=== PATIENT | male | born 1945 | race Caucasian/White ===

== ENCOUNTER 2018-03-13 06:20 | Day surgery (SDC) | payer MEDICARE ==
[~2018-03-13] VITALS: Ht 188 cm; Wt 97.5 kg
[~2018-03-13 06:20] MED LIST: AFLURIA IM; ALLOPURINOL300 MG PO; AMLODIPINE BESYL5 MG PO; ASPIR-LOW81 MG PO; CALCIUM600 MG; CALCIUM600 MG PO; FISH OIL 1,0001 EAC2 NG; FLUARIX QU60 MCG/0.6 IM; K-TAB ER20 MEQ PO; LIPITOR20 MG PO; MELATONIN5 M2 PO; MOEXIPRIL-HCTZ1 EACH PO; NORCO 5-325 TA1 EACH PO; TIZANIDINE HCL4 MG PO; VITAMIN B-121000 MCG PO
--- NOTE | 2018-03-13 08:35 | NUR ---
03/13/18 0835 Daniela Pinto 0829- PT ARRIVES TO PACU AWAKE, BUT DROWSY. PT ABLE TO RESPOND TO VERBAL COMMAND AND DENIES PAIN OR NAUSEA. PT ON 3L 02, SATS 96%.
--- NOTE | 2018-03-13 14:12 | NUR ---
CONNECTED WITH PT'S . SHE FEELS AT EASE WITH [employer] SCOPE FOR HER . WAITING PATIENTLY, THANKED ME FOR CHECKING. WILL FOLLOW NEEDED
--- NOTE | 2018-03-14 12:04 | OR ---
[facility] [address] [place], [place] [address] Signed DATE OF OPERATION: 03/13/2018 SURGEON: Cj Hunt MD PREOPERATIVE DIAGNOSES: Surveillance colonoscopy, history of hyperplastic polyps in 2012. POSTOPERATIVE DIAGNOSIS: Sigmoid diverticulosis, otherwise normal. PROCEDURE PERFORMED: Total colonoscopy to cecum. ANESTHESIA: Intravenous sedation, fentanyl 100 mcg, and Versed 6 mg. INDICATION: This 72-year-old white man is here for surveillance colonoscopy, having undergone colonoscopy last in 2012, at which time hyperplastic polyp was found. He has no family history of colon cancer and generally feels well. The risks of bleeding, infection, and perforation related to colonoscopy was reviewed with him, he understands and wished to proceed. FINDINGS: The prep was adequate. Complete colonoscopy was undertaken to the cecum without question. There was no sign of polyps or colitis. He did have numerous diverticula of the sigmoid and left colon. DESCRIPTION OF PROCEDURE: The patient was brought to the endoscopy suite and placed in lateral decubitus position and given intravenous sedation to the point of slurred speech and nystagmus. Digital rectal examination was normal. An Olympus video colonoscope was passed in the rectum and manipulated throughout the colon. Diverticular changes were noted in the sigmoid and left colon. The scope was ultimately advanced to the ileocecal valve, which was well visualized as was the cecum itself. Irrigation was undertaken. The scope was carefully withdrawn, examination throughout showed no sign of polyps or colitis, but reaffirmed findings of diverticulosis of the left colon and sigmoid. Retroflexed view of the rectum was normal. Scope was removed and the patient was taken to the recovery room in good Electronically Signed By: CJ HUNT MD 03/14/18 1204 PATIENT NAME: KARELY JAIME OPERATIVE REPORT DATE OF : 49 REPORT #: [id number] PHYSICIAN: CJ HUNT MD PCP: NO PRIMARY CARE PHYSICIAN REPORT IS CONFIDENTIAL AND NOT TO BE RELEASED WITHOUT AUTHORIZATION [facility] [address] [place], [place] [address] Signed condition. CONCLUDING DIAGNOSIS: Diverticulosis. No sign of polyp. PLAN: Recommend high-fiber diet. Repeat colonoscopy in 10 years sooner if clinically indicated. MD BRIDGETT Sewell/MODL /[id number] cc: Micah Becerra DO Copies: MICAH BECERRA DO ~ Electronically Signed By: CJ HUNT MD 03/14/18 1204 PATIENT NAME: KARELY JAIME OPERATIVE REPORT DATE OF : 49 REPORT #: [id number] PHYSICIAN: CJ HUNT MD PCP: NO PRIMARY CARE PHYSICIAN REPORT IS CONFIDENTIAL AND NOT TO BE RELEASED WITHOUT AUTHORIZATION
== END 2018-03-13 09:10 | disposition home or self-care (01) ==
LOC: OPS 06:20 → DS 06:20 → OPS 06:45
PROVIDERS: Surgery
PROC: 0DJD8ZZ Inspection of Lower Intestinal Tract, Via Natural or Artificial Opening Endoscopic (ICD-10-PCS; principal; 2018-03-13 06:45)
DX: Z12.11 Encounter for screening for malignant neoplasm of colon (principal); K57.30 Diverticulosis of large intestine without perforation or abscess without bleeding; I10 Essential (primary) hypertension; Z86.010 Personal history of colon polyps
CPT/HCPCS: 99153; G0500; J2250; J3010; J7120